=== PATIENT | female | born 1990 | race Caucasian/White ===

== ENCOUNTER 2022-12-31 21:47 | Emergency (ER) | payer MEDICAID, SELFPAY ==
[2022-12-31 21:54] VITALS: BP 129/90; PULSE 109; RESP 16; TEMP 36.6; O2SAT 98
--- NOTE | 2022-12-31 22:08 | ED.GENADUL_ITS ---
Discharge Plan Disposition Patient Disposition: Home Condition: Stable Discharge Details Clinical Impression: Leg wound, left Primary Care Provider: Unknown,Unknown ED Provider: Kurtis Ramirez Home Meds and New Rx's Prescriptions: Continued multivitamin Tablet 1 tab PO DAILY metformin 500 mg Tablet 500 mg PO BID simvastatin 5 mg Tablet 5 mg PO DAILY Discharge Instructions Additional Instructions: continue to use the topical antibiotics on the wound and clean the wound if it gets dirty with gentle soap and water follow up with your primary care provider if not improving this week if you feel more ill, have fevers or the redness starts spreading away from the wound return to the emergency department Medical Decision Making 32 yo female who states she had a mole removed by a provider this past Tuesday on her left lower medial leg that was uncomplicated comes in with some discomfort around the site. She denies any fevers, chills, drainage. She arrives stable in no distress. Her left lower leg is not swollen. She has a 1cm superficial healing wound on the mid left lower medial leg. There is 1mm faint erythema, no drainage, no crepitus, no warmth. Advised there is no evidence of cellulitis or other concerning findings and appears to be healing well and doesn't require antibiotics. Advised she can use topical antibiotics, she is stable for d/c, return precautions given and advised to f/u with pcp Differential Diagnosis Differential Diagnosis: healing wound, cellulitis HPI General Mode of arrival: ambulatory . Date/Time Provider Initiated Documentation: 12/31/22 21:55 . Limitations to Documentation: no limitations . Information obtained by: patient . History of Present Illness 32 year old F presents to the emergency department with the chief complaint of left leg wound, described as mild, Quality is described as aching, Patient started experiencing this day(s) (4) and it has been constant. No relieving factors improve symptom(s), No exacerbating factors reported . Patient notes denies fever/chills. Patient did receive the following treatments prior to arrival, NSAID Related Data Home Medications Medication Instructions Recorded Confirmed metformin 500 mg tablet 500 mg PO BID 12/31/22 12/31/22 multivitamin 1 tab PO DAILY 12/31/22 12/31/22 simvastatin 5 mg tablet 5 mg PO DAILY 12/31/22 12/31/22 Allergies Allergy/AdvReac Type Severity Reaction Status Date / Time Penicillins Allergy Unverified 12/31/22 21:58 General Stated Complaint: Cellulitis MYNOR: 4 Review of Systems All systems reviewed & are unremarkable except as noted in HPI and below Constitutional Constitutional: Denies chills, Denies fever(s) and Denies weakness Cardiovascular Cardiovascular: Denies chest pain and Denies dyspnea Respiratory Respiratory: Denies cough and Denies dyspnea Gastrointestinal Gastrointestinal: Denies abdominal pain, Denies nausea and Denies vomiting Musculoskeletal Musculoskeletal: Denies joint swelling Neurologic Neurologic: Denies weakness PFSH All Active Problems (Updated 12/31/22 @ 22:13 by Kurtis Ramirez MD) Leg wound, left (Acute) Social History Smoking/Tobacco Use Status: Never Smoking risk assessment performed?: Yes Alcohol Intake: never Substance use type: does not use Do you feel safe at home: Yes Do you feel safe in your relationship?: Yes Exam Const General: no acute distress Orientation: alert HENMT Head: normal to inspection Ears: external ears normal General nose exam: external nose normal Mouth: moist mucous membranes Eyes General: appearance normal, both eyes and all related structures Neck Neck: normal visual inspection Resp Effort & Inspection: normal respiratory effort and able to speak in complete sentences Cardio Rate: regular rate Skin General skin exam: elasticity normal Neuro General: patient alert and patient oriented x3 Extrem General: full ROM and no edema Psych Mental Status: mental status grossly normal Course Vital Signs Vital signs: Vital Signs Temperature 36.6 C 12/31/22 21:54 Pulse 109 H 12/31/22 21:54 Respiratory Rate 16 12/31/22 21:54 Blood Pressure 129/90 12/31/22 21:54 Pulse Oximetry 98 12/31/22 21:54 Temperature 36.6 C 12/31/22 21:54 Temperature Source Temporal Artery Scan 12/31/22 21:54 Pulse 109 H 12/31/22 21:54 Respiratory Rate 16 12/31/22 21:54 Respiratory Effort Normal 12/31/22 21:54 Blood Pressure 129/90 12/31/22 21:54 Blood Pressure Position Sitting 12/31/22 21:54 Pulse Oximetry 98 12/31/22 21:54 Oxygen Delivery Method Room Air 12/31/22 21:54 Oxygen Flow Rate 0 12/31/22 21:54 Pain Level 8 12/31/22 21:54
[2022-12-31] MEDS: Lidocaine 5% Patch 1 PATCH TP (22:15)
== END 2022-12-31 22:21 | disposition home or self-care (01) ==
PROVIDERS: Emergency Provider Emergency Medicine
DX: M79.662 Pain in left lower leg (principal); G89.18 Other acute postprocedural pain
CPT/HCPCS: 99283; 99284

== ENCOUNTER 2023-07-21 13:52 | Outpatient (REF) | payer MEDICAID, SELFPAY | END 2023-07-21 13:53 | disposition home or self-care (01) | LOC: LBN 13:52 | PROVIDERS: Visit Provider Obstetrics & Gynecology | DX: N76.0 Acute vaginitis; N94.89 Other specified conditions associated with female genital organs and menstrual cycle | CPT/HCPCS: 87480; 87510; 87660 ==

== ENCOUNTER 2023-11-04 10:05 | Outpatient (REF) | payer MEDICAID, SELFPAY | END 2023-11-04 10:06 | disposition home or self-care (01) | LOC: LBN 10:05 | PROVIDERS: PCP Family Medicine; Visit Provider Obstetrics & Gynecology | DX: N89.8 Other specified noninflammatory disorders of vagina (principal) | CPT/HCPCS: 87480; 87510; 87660 ==

== ENCOUNTER 2023-11-07 14:04 | Outpatient (REF) | payer MEDICAID, SELFPAY ==
[2023-11-07 14:59] LABS: ALT 29 U/L (14-59); AST 14 U/L (15-37); Albumin 3.9 g/dL (3.4-5.0); Alkaline Phosphatase 74 U/L (46-116); Anion Gap 8.7 mmol/L (3-11); BUN 13 mg/dL (7-18); Bilirubin, Total 0.3 mg/dL (0.2-1.0); CO2 29.3 mmol/L (21.0-32.0); CREATININE 0.8 mg/dL (0.55-1.02); Calcium 9.8 mg/dL (8.5-10.1); Calculated LDL 239 mg/dL (<100); Chloride 103 mmol/L (98-107); Cholesterol 329 mg/dL (<200); Estimated GFR 100.33 (mL/min/1.73m2); Glucose 103 mg/dL (74-106); HDL Cholesterol 50 mg/dL (40-60); Potassium 4.7 mmol/L (3.5-5.1); Sodium 141 mmol/L (136-145); Total Protein 7.4 g/dL (6.4-8.2); Triglyceride 200 mg/dL (<150)
== END 2023-11-07 14:05 | disposition home or self-care (01) ==
LOC: NCHCN 14:04
PROVIDERS: PCP Family Medicine; Visit Provider Family Medicine
DX: Z00.00 Encounter for general adult medical examination without abnormal findings (principal)
CPT/HCPCS: 80053; 80061

== ENCOUNTER 2024-02-16 18:05 | Outpatient (REF) | payer MEDICAID, SELFPAY ==
[2024-02-16 21:25] LABS: Calculated LDL 77 mg/dL (<100); Cholesterol 167 mg/dL (<200); HDL Cholesterol 40 mg/dL (40-60); TSH (W/Ref FT4) 1.25 uIU/mL (0.36-3.74); Triglyceride 250 mg/dL (<150)
== END 2024-02-16 18:06 | disposition home or self-care (01) ==
LOC: NCHCN 18:05
PROVIDERS: PCP Family Medicine; Referring Provider Family Medicine; Visit Provider Family Medicine
DX: E78.5 Hyperlipidemia, unspecified (principal)
CPT/HCPCS: 80061; 84443

== ENCOUNTER 2024-02-26 14:49 | Emergency (ER) | payer OTHER, MEDICAID, SELFPAY ==
[2024-02-26 14:57] VITALS: BP 170/75; PULSE 94; RESP 16; TEMP 36.6; O2SAT 99
--- NOTE | 2024-02-26 15:00 | DI.CT_ITS ---
Exam(s) CT CHEST PE ABD PELVIS W EXAM: CT CHEST PE ABD PELVIS W CLINICAL HISTORY: pleuritic right lower back pain radiating to RUQ. TECHNIQUE: Imaging Protocol: Axial CT angiography was performed with multi-slice acquisition and m ulti-planar and/or 3D reconstructions. CONTRAST MATERIAL: Intravenous: Omnipaque 350 Contrast volume:100 ml Oral: None COMPARISON: No exams were available for comparison FINDINGS: CHEST: PULMONARY ARTERIES: There are no obvious intra-arterial filling defects to suggest the presence of ac [place] pulmonary emboli. LUNGS: There is no evidence of pulmonary infarction.No infiltrates. No ominous pulmonary nodules. T here are no pleural effusions. MEDIASTINUM: There is no hilar nor mediastinal adenopathy. Visualized thyroid unremarkable. CARDIAC: Heart size is normal. There is no pericardial effusion. There is no significant shift of t he interventricular septum.Caliber of the thoracic aorta is within normal limits. No evidence of aor tic dissection OSSEOUS: No significant osseous lesions.. ABDOMEN: There is no ascites. LIVER: There are no focal hepatic lesions nor dilatation of intrahepatic ducts. GALLBLADDER/BILIARY: Gallbladder is somewhat contracted. No radiopaque gallstones noted in the lumen . No pericholecystic fluid. CBD is not dilated. PANCREAS: No evidence of pancreatic mass nor dilatation of the pancreatic duct. SPLEEN: Spleen is not enlarged. There are no intrasplenic lesions. Splenic and portal veins are kramer nt. ADRENALS: There are no significant adrenal masses. KIDNEYS:No cysts evident. No calculi nor hydronephrosis. No solid renal masses. ABDOMINAL AORTA: Abdominal aorta is not enlarged. LYMPH NODES: There is no retroperitoneal or para-aortic adenopathy. ABDOMINAL WALL/GI: No evidence of significant anterior abdominal wall hernia. No bowel obstruction. PELVIS: LYMPH NODES: There is no intrapelvic nor inguinal adenopathy. GI: No evidence of appendicitis.No evidence of sigmoid diverticulitis. URINARY BLADDER: No calculi nor masses evident REPRODUCTIVE: Uterus and adnexal regions appear unremarkable. No free fluid. OSSEOUS: No significant osseous lesions. IMPRESSION: 1. No evidence of acute pulmonary emboli nor pulmonary infarction. No other intrathoracic findings. 2. Also no acute findings in the abdomen and pelvis. RADIATION DOSE DELIVERED: Total DLP DATA REPOSITORY: All CT scans at this facility are submitted to the National Radiology Data Registry (NRDR) Dose Index Registry (DIR) with the [employer] (ACR). RADIATION OPTIMIZATION: All CT scans at this facility use at least one of these dose optimization te chniques: automated exposure control; mA and/or kV adjustment per patient size (includes targeted exa ms where dose is matched to clinical indication); or iterative reconstruction.
--- NOTE | 2024-02-26 15:14 | ED.GENADUL_ITS ---
Discharge Plan Disposition Patient Disposition: Home Condition: Improving Discharge Details Clinical Impression: Musculoskeletal chest pain Primary Care Provider: Amber Thomas ED Provider: Alvaro Jimenez Home Meds and New Rx's Prescriptions: New lidocaine [Lidoderm] 5 % adhesive patch,medicated 1 patch topical DAILY Qty: 15 0RF Rx Instructions: leave on most painful area for up to 12 hrs cyclobenzaprine 5 mg tablet 5 mg PO QHS PRN (Reason: muscle spasm) Qty: 7 0RF No Action multivitamin Tablet 1 tab PO DAILY rosuvastatin 20 mg tablet 20 mg PO DAILY Patient Comments: TAKE 1 TABLET BY MOUTH EVERY DAY Discharge Instructions Instructions: Chest Pain (ED) HPI General Date/Time Provider Initiated Documentation: 02/26/24 14:55 . HPI Narrative: 33-year-old female presents with right thoracic pleuritic discomfort rating to right upper quadrant worse with movement worse with breathing sharp in nature intermittent, denies chest pain or shortness of breath. Denies exogenous estrogen use recent travel recent immobilization or history of thromboembolic disease in herself or the family; denies history of abdominal surgery in the past; denies nausea or vomiting. Related Data Home Medications Medication Instructions Recorded Confirmed multivitamin 1 tab PO DAILY 12/31/22 02/26/24 cyclobenzaprine 5 mg tablet 5 mg PO QHS PRN muscle spasm #7 02/26/24 tabs lidocaine 5 % topical patch 1 patch topical DAILY #15 ea 02/26/24 (Lidoderm) rosuvastatin 20 mg tablet 20 mg PO DAILY 02/26/24 02/26/24 Previous Rx's Medication Instructions Recorded cyclobenzaprine 5 mg tablet 5 mg PO QHS PRN muscle spasm #7 02/26/24 tabs lidocaine 5 % topical patch 1 patch topical DAILY #15 ea 02/26/24 (Lidoderm) Allergies Allergy/AdvReac Type Severity Reaction Status Date / Time Penicillins Allergy Mild Nausea Unverified 02/26/24 14:55 General Stated Complaint: Abd Prob MYNOR: 3 Review of Systems Narrative: Review of Systems Constitutional: negative Eyes: negative ENT: negative Cardiovascular: negative Respiratory: negative Gastrointestinal: Abdominal pain : negative Musculoskeletal: Back pain Skin: negative Neurologic: negative Psych: negative Exam Narrative Exam Narrative: Physical Examination General: alert, awake, cooperative, resting comfortably, no acute distress HEENT: normocephalic, atraumatic; PERRL, EOM intact, conjunctiva normal; no nasal discharge; moist mucous membranes, oral and pharyngeal mucosa normal, tolerating secretions Neck: supple, trachea midline; full ROM Chest: normal to inspection Respiratory: normal respiratory effort, speaking in full sentences, clear to auscultation, no wheezing, rales or rhonchi Cardiac: regular rate, regular rhythm, S1S2 intact, no murmurs rubs or gallops GI: abdomen soft, non-tender, non-distended; no palpable mass or hepatosplenomegaly Skin: no lesions, rashes or trauma appreciated Neuro: AAOx3, normal speech, moving all extremities Psych: Appropriate mood and affect Course Vital Signs Vital signs: Vital Signs Temperature 36.6 C 02/26/24 14:57 Pulse 94 H 02/26/24 14:57 Respiratory Rate 16 02/26/24 14:57 Blood Pressure 170/75 H 02/26/24 14:57 Pulse Oximetry 99 02/26/24 14:57 Temperature 36.6 C 02/26/24 14:57 Temperature Source Temporal Artery Scan 02/26/24 14:57 Pulse 94 H 02/26/24 14:57 Respiratory Rate 16 02/26/24 14:57 Respiratory Effort Normal, Non-Labored 02/26/24 14:59 Blood Pressure 170/75 H 02/26/24 14:57 Blood Pressure Position Sitting 02/26/24 14:57 Pulse Oximetry 99 02/26/24 14:57 Oxygen Delivery Method Room Air 02/26/24 14:57 Oxygen Flow Rate 0 02/26/24 14:57 Pain Level 6 02/26/24 14:57 Medical Decision Making 33-year-old female presents with pleuritic right thoracic pain posterior nature rating to right upper quadrant, worse with movement and deep breathing, no shortness of breath no chest pain, no exogenous estrogen use or thromboembolic risk factors, abdomen soft nontender nondistended slight discomfort right upper quadrant without guarding or rebounding, consider biliary colic versus PE versus pneumonia versus pleural effusion low suspicion for pneumothorax was also consider musculoskeletal strain low suspicion for ACS or aortic pathology, lower suspicion for nephrolithiasis or pyelonephritis. Screening labs imaging fluids analgesia close reassessment 17: 33 patient resting comfortably no acute distress. CT chest CT abdomen pelvis unremarkable. Feeling better after analgesia anti-inflammatory. Likely musculoskeletal back and chest wall discomfort. Quality:SDOH Health Related Social Needs: No Data to Display PFSH All Active Problems (Updated 02/26/24 @ 17:32 by Alvaro Jimenez MD) Musculoskeletal chest pain (Acute) Medical History (Updated 02/26/24 @ 17:32 by Alvaro Jimenez MD) Ear fullness History of blood transfusion Otitis media, unspecified, bilateral Nasal polyps Candidiasis of skin Eustachian tube dysfunction Leg wound, left Social History Smoking/Tobacco Use Status: Never Smoking risk assessment performed?: Yes Alcohol Intake: never Drug use: Never Substance use type: does not use Housing: apartment Do you feel safe at home: Yes Do you feel safe in your relationship?: Yes Female Reproductive History Menstrual Age of Menarche: 13 History History 1 Para 1 Hx # Term Pregnancies Multiple births Hx # Pregnancies Ectopic pregnancies AB induced Hx Number of Living Children AB spontaneous Past Pregnancies Del. Date GA/Weeks # Preg Succ Route Wgt Sex Labor Lgth Anesth esia Location Prov Complic 06/24/21 38 Yes vaginal Male Delivery Date: 06/24/21 Last Updated by: Corazon Trivedi
[2024-02-26 15:29] LABS: Abs Immature Grans 0.01 10^3/uL (0.0-0.06); Absolute Basophil Count 0.05 10^3/uL (0.0-0.2); Absolute Eosinophil Count 0.36 10^3/uL (0.0-0.7); Absolute Lymphocyte Count 3.36 10^3/uL (1.2-3.4); Absolute Monocyte Count 0.46 10^3/uL (0.1-0.8); Absolute Neutrophil Count 5.21 10^3/uL (1.2-6.7); Basophils % 0.5; Eosinophils % 3.8; HCT 40.8 % (36.0-46.0); HGB 13.4 g/dL (11.2-15.7); Immature Grans % 0.1; Lymphocytes % 35.6; MCH 27.4 pg (27.0-33.0); MCHC 32.8 % (32.0-36.0); MCV 83 fL (80-95); MPV 9.7 fL (8.0-11.0); Monocytes % 4.9; Neutrophils % 55.1; Platelet Count 284 10^3/uL (130-400); RBC 4.89 10^6/uL (3.93-5.22); RDW 12.5 % (11.7-14.6); RDW-SD 37.9 fL; WBC 9.45 10^3/uL (4.4-10.8)
[2024-02-26 15:31] LABS: Bilirubin Negative (Negative); Blood Negative (Negative); Clarity Sl Cloudy (Clear); Glucose Negative (Negative); Ketones Trace mg/dL (Negative); Leukocyte Esterase Negative (Negative); Nitrite Negative (Negative); Specific Gravity >= 1.030 (1.005-1.025); Urobilinogen 0.2 mg/dL (Up to 0.2); pH 5.5 (5-8)
[2024-02-26] MEDS: Ketorolac 15 MG/ML VIAL IVP (15:34)
[2024-02-26] MEDS: Normal Saline 1,000 ML 1000 ML IV (15:34)
[2024-02-26] MEDS: Lidocaine 5% Patch 1 PATCH TP (15:34)
[2024-02-26] MEDS: Ondansetron 4 MG/2 ML VIAL IVP (15:35)
[2024-02-26 15:43] LABS: Prothrombin Time 10.2 sec (9.1-11.1)
[2024-02-26 15:51] LABS: ALT 39 U/L (14-59); AST 17 U/L (15-37); Albumin 3.6 g/dL (3.4-5.0); Alkaline Phosphatase 75 U/L (46-116); Anion Gap 7.6 mmol/L (3-11); BUN 14 mg/dL (7-18); Bilirubin, Total 0.3 mg/dL (0.2-1.0); CO2 28.4 mmol/L (21.0-32.0); CREATININE 0.7 mg/dL (0.55-1.02); Calcium 8.7 mg/dL (8.5-10.1); Chloride 103 mmol/L (98-107); Estimated GFR 117.77 (mL/min/1.73m2); Glucose 139 mg/dL (74-106); Lipase 60 U/L (16-77); NT-proBNP 44 pg/mL (<300); Potassium 3.7 mmol/L (3.5-5.1); Sodium 139 mmol/L (136-145); Total Protein 7.4 g/dL (6.4-8.2)
[2024-02-26 15:57] LABS: Troponin I < 50 ng/L (< or =60)
[2024-02-26] MEDS: Omnipaque 350 MG/ML 100 ML BTL IJ (16:20)
[2024-02-26] MEDS: Normal Saline - Diluent 50 ML VIAL IJ (16:21)
--- NOTE | 2024-02-26 17:16 | DI.VRAD_ITS ---
PROCEDURE INFORMATION: Exam: CTA Chest With Contrast Exam date and time: 02/26/2024 3:57 PM Age: 33 years old Clinical indication: Abdominal pain; Localized; Right upper quadrant (ruq); Pleuordynia; Patient HX: Pleuritic right lower back pain radiating to ruq TECHNIQUE: Imaging protocol: Computed tomographic angiography of the chest with contrast. Exam focused on the arteries. 3D rendering (Not supervised by radiologist): MIP and/or 3D reconstructed images were created by the technologist. COMPARISON: No relevant prior studies available. FINDINGS: Pulmonary arteries: Normal. No pulmonary emboli. Aorta: Unremarkable. No aortic aneurysm. No aortic dissection. Lungs: The lungs are slightly hypoinflated. Pleural spaces: Unremarkable. No pneumothorax. No pleural effusion. Heart: Unremarkable. No cardiomegaly. No pericardial effusion. Lymph nodes: Unremarkable. No enlarged lymph nodes. Bones/joints: Unremarkable. No acute fracture. Soft tissues: Unremarkable. IMPRESSION: No evidence for pulmonary embolus. PROCEDURE INFORMATION: Exam: CT Abdomen And Pelvis With Contrast Exam date and time: 02/26/2024 3:57 PM Age: 33 years old Clinical indication: Abdominal pain; Localized; Right upper quadrant (ruq); Pleuordynia; Patient HX: Pleuritic right lower back pain radiating to ruq TECHNIQUE: Imaging protocol: Computed tomography of the abdomen and pelvis with contrast. COMPARISON: No relevant prior studies available. FINDINGS: Liver: Normal. No mass. Gallbladder and bile ducts: Gallbladder contracted. Pancreas: Normal. No ductal dilation. Spleen: Normal. No splenomegaly. Adrenal glands: Normal. No mass. Kidneys and ureters: Normal. No hydronephrosis. Stomach and bowel: Unremarkable. No obstruction. No mucosal thickening. Appendix: No evidence of appendicitis. Intraperitoneal space: Unremarkable. No free air. No significant fluid collection. Vasculature: Unremarkable. No abdominal aortic aneurysm. Lymph nodes: Unremarkable. No enlarged lymph nodes. Urinary bladder: Bladder not well distended. Reproductive: Unremarkable as visualized. Bones/joints: Unremarkable. No acute fracture. Soft tissues: Unremarkable. IMPRESSION: No acute abnormality seen to account for symptoms. Dictated and Authenticated by: Domitila Goodman MD. Ordering:ULISES John MD
[2024-02-26 17:46] VITALS: BP 105/76; PULSE 78; RESP 16; O2SAT 98
== END 2024-02-26 18:15 | disposition home or self-care (01) ==
PROVIDERS: Emergency Provider Emergency Medicine; PCP Family Medicine
DX: R07.89 Other chest pain (principal); R10.11 Right upper quadrant pain
CPT/HCPCS: 71275; 74177; 80053; 81025; 83690; 96361; 96374; 96375; 99285; 81003; 83880; 84484; 85025; 85610; 85730; 99284; J1885; J2405; J3490

== ENCOUNTER 2025-03-06 19:06 | Outpatient (REF) | payer MEDICAID, SELFPAY | END 2025-03-06 19:07 | disposition home or self-care (01) | LOC: NCHCN 19:06 | PROVIDERS: PCP Family Medicine; Visit Provider Family Medicine | DX: R35.0 Frequency of micturition (principal); A49.8 Other bacterial infections of unspecified site | CPT/HCPCS: 87086 ==

== ENCOUNTER 2025-03-29 07:12 | Day surgery (SDC) | payer MEDICAID, SELFPAY ==
[2025-03-29 06:56] VITALS: BMI 38.9
--- NOTE | 2025-03-29 06:56 | ANES.PREOP_ITS ---
General Info Date of Service Date Performed: 03/29/25 Height: 5 ft 3 in Weight: 99.79 kg Body Mass Index (BMI): 38.9 Surgical Procedure: Operation Date: 03/29/25 08:35 Proposed Procedure Side Surgeon p Hussain SO MD Meds Allergies and Home Medications Allergies Allergy/AdvReac Type Severity Reaction Status Date / Time Penicillins Allergy Intermediate Hives Verified 03/29/25 07:39 Home Medication ?Medication ?Instructions ?Recorded multivitamin 1 tab PO DAILY 12/31/22 rosuvastatin 20 mg tablet 20 mg PO DAILY 02/26/24 fluoxetine 40 mg capsule 40 mg PO DAILY 03/05/25 polyethylene glycol 3350 17 17 g PO BID 03/05/25 gram/dose oral powder psyllium husk 0.4 gram capsule 0.8 g PO DAILY 03/05/25 (Metamucil) tirzepatide 12.5 mg/0.5 mL 12.5 mg subcut QWEEK 03/05/25 subcutaneous pen injector (Mounjaro) bisacodyl 5 mg tablet,delayed 5 mg PO ONCE colonscopy bowel prep 03/12/25 release (Dulcolax (bisacodyl)) #4 tabs polyethylene glycol 3350 17 238 g PO ONCE colonoscopy prep 03/12/25 gram/dose oral powder #238 grams Current Visit Medications: Current Medications Generic Name Dose Route Start Last Admin Trade Name Freq PRN Reason Stop Dose Admin Ringer's Solution 1,000 mls @ 80 mls/hr 03/29/25 06:00 IV 03/29/25 23:59 INFUSION GT IV Miscellaneous Supplies 1 each 03/29/25 06:00 Iv Access IV 03/29/25 23:59 DIRECTED GT Sodium Chloride 0 ml 03/29/25 06:00 Normal Saline Flush 10 Ml Syr IV 03/29/25 23:59 PRN PRN Sodium Chloride 0 ml 03/29/25 06:00 Normal Saline 10 Ml Vial IJ 03/29/25 23:59 DIRECTED PRN Sterile Water 0 ml 03/29/25 06:00 Water,Injection,Sterile 10 Ml Vial IJ 03/29/25 23:59 DIRECTED PRN PFSH Active Problems Active Problems: Problem Status Onset Code Irregular bowel habits Acute R19.8 ADHD (attention deficit hyperactivity disorder) Acute F90.9 OCD (obsessive compulsive disorder) Acute F42.9 Bowel dysfunction Acute K59.9 Obesity Chronic E66.9 Type 2 diabetes mellitus Acute E11.9 Hemorrhoids Acute K64.9 Medical History Medical History Polyp of nasal cavity Hyperlipidemia Steatosis of liver Chilblain IBS (irritable bowel syndrome) Constipation Anxiety disorder Major depression Ear fullness History of blood transfusion Otitis media, unspecified, bilateral Nasal polyps Candidiasis of skin Eustachian tube dysfunction Leg wound, left Surgical History Surgical History H/O wisdom tooth extraction History of tonsillectomy History of endoscopy Tobacco Smoking/Tobacco Use Status: Never Alcohol Alcohol Intake: never Substance Use Substance use: Never Substance use type: does not use Prental History History 1 Para 1 Hx # Term Pregnancies Multiple births Hx # Pregnancies Ectopic pregnancies AB induced Hx Number of Living Children AB spontaneous Past Pregnancies Del. Date GA/Weeks # Preg Succ Route Wgt Sex Labor Lgth Anesth esia Location Prov Complic 06/24/21 38 Yes vaginal Male Delivery Date: 06/24/21 Last Updated by: Corazon Trivedi Vital Signs and Lab Results Vital Signs Most Recent Vital Signs in EMR: Temp Pulse Resp BP Pulse Ox 36.6 C 78 17 106/71 97 03/29/25 07:33 03/29/25 07:33 03/29/25 07:33 03/29/25 07:33 03/29/25 07:33 Lab Results Blood Type / Crossmatch: No Data to Display Complete Blood Count: No Data to Display Complete Metabolic Panel: No Data to Display Liver Function Panel: No Data to Display Coagulation Panel: No Data to Display Cardiac Panel: No Data to Display Arterial Blood Gas: No Data to Display Venous Blood Gas: No Data to Display Pancreas Panel: No Data to Display Thyroid Panel: No Data to Display Infectious Disease: No Data to Display Blood Cultures: No Data to Display Toxicology Panel: No Data to Display Panel: No Data to Display Anesthesia Assessment and Plan Anesthesia History Personal History: No History of Anesthesia Complications Family History: No Family History of Anesthesia Complications Exercise Tolerance Exercise Tolerance: Metabolic Equivalents>4 Pertinent Negatives Pertinent Negatives: No Symptoms of GERD, No Major Cardiovascular Symptoms or Complaints, No Major Pulmonary Symptoms or Complaints and No History of CVA/TIA Cardiac & Pulmonary Exam Cardiac Exam: Normal S1/S2 Heart Sounds Pulmonary Exam: Clear Bilateral Breath Sounds Implantable Cardiac Device Does patient have a Pacemaker or an ICD?: No Airway Exam Known Difficult Airway: No Mallampati Class: 2 Mouth Opening: Normal (> 3cm) Thyromental Distance: Greater than 3 cm Neck Range of Motion: Full ROM Neck Circumference: Normal Teeth Condition: Normal Dentition ASA Classification ASA Score: ASA 2 Emergency Case?: No NPO Status NPO Status: NPO Clears >2 hours, Solids >8 hours Status Status: Pt. refuses testing, she was counseled on anesthesia risks Anesthesia Plan Resuscitation Status: Full Code Anesthesia Technique: General Anesthesia Airway Planned: Natural Airway Monitors Used: Standard Monitors
[2025-03-29 07:33] VITALS: BP 106/71; PULSE 78; RESP 17; TEMP 36.6; O2SAT 97
[2025-03-29] MEDS: Lactated Ringers 1,000 ML 80 ML IV (07:44)
[2025-03-29 09:02] VITALS: BP 111/74; PULSE 79; RESP 16; TEMP 36.4; O2SAT 100
--- NOTE | 2025-03-29 09:05 | W.ANESPOSTOP ---
Postoperative Evaluation Date, Time and Location Date Performed: 03/29/25 Time Performed: 09:05 Patient Location: Day Surgery Unit Vital Signs Most Recent Imported Vital Signs: Most Recent Vital Signs Temp Pulse Resp BP Pulse Ox 36.6 C 78 17 106/71 97 03/29/25 07:33 03/29/25 07:33 03/29/25 07:33 03/29/25 07:33 03/29/25 07:33 Pain Score Most Recent Pain Score: Most Recent Pain Score Pain Level 0 03/29/25 07:33 Assessment Mental Status: Awake (Alert & Oriented to Patient Baseline) Airway and Respiratory Function: Patent airway with normal (patient baseline) respiratory exam Cardiovascular Function: Hemodynamically Stable Hydration Status: Adequately Hydrated Nausea & Vomiting: No Nausea or Vomiting Pain: Pt. Denies Any Pain Peripheral Nerve Block: Patient did not receive a nerve block
--- NOTE | 2025-03-29 09:07 | W.PM.OP ---
Operative Note Operative Note PRE-OP DIAGNOSIS: Rectal bleeding POST-OP DIAGNOSIS: other (Colon polyp, external hemorrhoid) PROCEDURE: Colonoscopy SURGEON: Rogelio SO ANESTHESIA TYPE: MAC Refer to Anesthesia Record PATHOLOGY: other (Sigmoid colon polyp) COMPLICATIONS: None Patient was transported to: PACU Patient's condition: stable Findings: 1 subcentimeter colon polyp, small external hemorrhoid Procedure Description: After obtaining informed consent, patient was brought back to the endoscopy suite. She was turned on the left side and connected to the monitors. Timeout was performed. I began by performing a digital rectal exam. This revealed a small noninflamed external hemorrhoid in the anterior midline. I inserted the colonoscope and advanced the length of the colon. I attained the cecum as identified by the appendiceal orifice and the ileocecal valve. I intubated the ileocecal valve. The terminal ileum had a normal appearance. I withdrew into the cecum. Prep was good. Cecum had a normal appearance. I withdrew along the ascending colon, transverse colon, descending colon, and sigmoid colon. In the sigmoid colon she had a small inflammatory appearing polyp that I removed with a cold snare. This was retrieved with suction and sent to pathology. I withdrew into the rectum. I did retroflex. This was all unremarkable. I decompressed the sigmoid and the rectum and withdrew the scope entirely. Patient tolerated well. She went to recovery in stable condition. Disposition: Patient will be discharged home later today. We will call her with the pathology report. She can call the office if she is interested to pursue excision of her small external hemorrhoid. Date of Procedure: 03/29/25
[2025-03-29 09:31] VITALS: BP 89/66; PULSE 68; RESP 16; TEMP 36.3; O2SAT 99
--- NOTE | 2025-05-02 14:47 | PDOC.ANES ---
Date of service: 05/02/25 Time of Service: 14:47 Anesthesia Note Report Anesthesia Note: Called and discussed timing of Mounjaro with patient. Discussed physiology and risk. Discussed growing body of literature and why some recommendations seem to be shifting. Discussed that due to risk still being present she will remain cancelled for tomorrow and we will work on getting her back on the schedule. I gave time for questions and answers and patient expressed understanding.
== END 2025-03-29 09:46 | disposition home or self-care (01) ==
PROVIDERS: PCP Family Medicine; Visit Provider Surgery
PROC: 0DJD8ZZ Inspection of Lower Intestinal Tract, Via Natural or Artificial Opening Endoscopic (ICD-10-PCS; CPT 45378; principal; 2025-03-29 08:30)
DX: K62.5 Hemorrhage of anus and rectum (principal); K63.5 Polyp of colon; K64.4 Residual hemorrhoidal skin tags
CPT/HCPCS: 45385; 88305; J2371; J2704

== ENCOUNTER 2025-05-01 08:42 | Outpatient (CLI) | payer MEDICAID, SELFPAY ==
[2025-05-01 09:00] LABS: HCT 39.7 % (36.0-46.0); HGB 12.9 g/dL (11.2-15.7); MCH 27.3 pg (27.0-33.0); MCHC 32.5 % (32.0-36.0); MCV 84 fL (80-95); MPV 9.8 fL (8.0-11.0); Platelet Count 242 10^3/uL (130-400); RBC 4.73 10^6/uL (3.93-5.22); RDW 13.2 % (11.7-14.6); RDW-SD 40.5 fL
[2025-05-01 09:46] LABS: TSH (W/Ref FT4) 2.09 uIU/mL (0.36-3.74)
== END 2025-05-01 08:43 | disposition home or self-care (01) ==
LOC: LBO 08:42
PROVIDERS: PCP Family Medicine; Visit Provider Nurse Practitioner Women's Health
DX: F32.9 Major depressive disorder, single episode, unspecified (principal); F41.9 Anxiety disorder, unspecified
CPT/HCPCS: 36415; 85027; 84443

== ENCOUNTER 2025-05-14 10:57 | Day surgery (SDC) | payer MEDICAID, SELFPAY ==
--- NOTE | 2025-05-13 20:15 | PDOC.DSDIS_ITS ---
Date of service: 05/14/25 Discharge Plan Disposition Patient Disposition: Home Condition: Good Discharge Details Reason For Visit: Hemorrhoidectomy Attending Provider: Wayne Johnson Primary Care Provider: Amber Thomas Home Meds and New Rx's Prescriptions: New tramadol 25 mg tablet 25 mg PO Q8H PRNQty: 15 0RF Continued bupropion HCl [Wellbutrin SR] 200 mg tablet sustained-release 12 hr 200 mg PO DAILY norgestimate-ethinyl estradiol [Sprintec (28)] 0.25-0.035 mg tablet 1 tab PO DAILY Qty: 84 4RF Rx Instructions: Use active pills continuously with no breaks. Discard inactive pills psyllium husk [Metamucil] 0.4 gram capsule 0.8 g PO DAILY fluoxetine 40 mg capsule 60 mg PO DAILY Mounjaro 12.5 mg/0.5 mL pen injector 12.5 mg subcut QWEEK multivitamin Tablet 1 tab PO DAILY rosuvastatin 20 mg tablet 20 mg PO DAILY Patient Comments: TAKE 1 TABLET BY MOUTH EVERY DAY Discharge Instructions Instructions: Anal Fissure (DC) Additional Instructions: jaja Vizcaino today, and I hope you feel well, and make an uneventful recovery from the procedure. As it turns out, this is not actually hemorrhoid, rather an anal fissure. Anal fissures occur when there are small tears in the skin that fail to heal completely. This causes scar tissue to build up, causing the prominent bit of skin that you have been noticing. The pain and or bleeding that you are experiencing is from the fissure itself. These can be a little tricky to heal as the underlying problem is really increased anal sphincter tone, which causes limited blood flow to the tissue, preventing it from healing completely. There are a number of treatments for this, but hopefully excision and closure will solve the problem. Largely, the recovery is the same as hemorrhoidectomy, which we discussed beforehand. I did use a long-acting anesthetic, that will hopefully provide some relief in the days to come, but these incisions can be quite uncomfortable. I suggest that you alternate [id number] Tylenol and ibuprofen every 6 hours for the first 2 days. I put a prescription in for a medication called tramadol if you need that for more intense pain. Most patients also find sitz bath's very comfo rting. To perform a sitz bath, you can use your bathtub, or the toilet insert. What ever you choose, fill it with enough water so that you can sit in it, and your anus will be submerged. I typically recommend mixing a tablespoon of baking soda or Epsom salts with each cup of water. Most patients find more warm water to be most comfortable. You should try to do this once in the morning, once in the evening, and if possible during the course of the day after bowel movements. There is really no upper limit to how frequently you can do this so long as it is helping things feel better. As we discussed beforehand, I would also recommend that you some MiraLAX. 1 capful mixed with about 8 ounces of liquid once in the morning, and once in the evening is typically sufficient. The evening dose can be moved up into the afternoon if you find that it has waking you from sleep to use the bathroom. Stool should be soft, and relatively easy to pass. After 1 week, I would transition over to a bulking agent such as Metamucil, or other psyllium containing product. This oftentimes needs to be titrated up over the course of several days, as some patients find it a little bit bloating. The goal of this is to develop a soft, bulky stools that make it easier for the rectum to manage and pass. This should help reduce resting sphincter tone, and hopefully provide an environment that is more suitable for fissure healing. We have made a follow-up appointment in the office for you. You will be seeing one of my partners as I will be traveling during that time. If everything is healing nicely, and you are feeling well, hopefully nothing else will need to be done. If you are still having discomfort, or the wound looks at all concerning, then we will transition over to a topical ointment such as diltiazem cream, or nitroglycerin cream to see if that gets the tissue to soften up. If you need anything at all, please feel free to call the office at any time. The number is [phone] months 84. Stand Alone Forms: Anesthesia Discharge InstBerta, Roel Nye (DSU) Referrals: Wayne Johnson MD [ [facility] STAFF PHYSICIAN, Surgery] - 05/29/25 9:00 am Activity:: Activity as Tolerated Remove Dressings/Wound Care:: 24 hours Shower/Bathe:: 24 hours Diet:: As Tolerated Discharge Orders Discharge Orders: Discharge Order (Routine); Ordered 05/13/25 Ordered By: Wayne Johnson DS: Diagnosis Discharge Diagnosis (1) Hemorrhoids: Status: Acute Asessment and Plan: Excision and closure of anterior anal fissure
--- NOTE | 2025-05-13 20:16 | W.PM.OP ---
Operative Note Operative Note PRE-OP DIAGNOSIS: External hemorrhoid POST-OP DIAGNOSIS: other (Anterior anal fissure) PROCEDURE: Excision and primary closure of anal fissure SURGEON: Wayne Johnson ANESTHESIA TYPE: Local By Surgeon and General LMA/ETT Refer to Anesthesia Record ESTIMATED BLOOD LOSS: 10 PATHOLOGY: none sent COMPLICATIONS: None Patient was transported to: PACU Indications: Charis is a 34-year-old woman with anal discomfort, and prolapsing occasionally bleeding tissue. Findings: Anterior anal fissure with associated sentinel pile Procedure Description: Charis was brought back to the operating room, and general endotracheal anesthesia was initiated. She was then rolled from her stretcher into the prone position. Great care was taken to ensure that she was padded and supported appropriately. The anus and perineum were then prepped and draped. External exam revealed that this was not actually a hemorrhoid, rather a sentinel pile associated with a small anal fissure in the anterior midline. Digital rectal exam was normal. Next, I anesthetized the field with local anesthetic including Exparel. Small anal speculum was used for exposure. The fissure is approximately 0.75 cm long by 0.25 cm at its widest point. Next, a 3-0 Vicryl stitch was placed at the apex of the fissure, which was just beyond the anal verge. The fissure was then excised incorporating a small amount of healthy mucosa on each edge. The granulated base of the fissure was completely excised, taking great care to spare the underlying sphincters. The excision was carried out externally, including the sentinel pile associated with this fissure. The wound was irrigated. It was clean and hemostatic. The mucosa was then reapproximated with interrupted 3-0 Vicryl stitches extending out along the endoderm. The wound was hemostatic. Charis was then rolled back to the supine position on a stretcher, and activated and transferred to the recovery unit. Date of Procedure: 05/14/25
[2025-05-14 11:29] VITALS: BP 114/71; PULSE 74; RESP 18; TEMP 36.2; O2SAT 100
[2025-05-14] MEDS: Lactated Ringers 1,000 ML 80 ML IV (11:49)
--- NOTE | 2025-05-14 12:36 | W.ANESPRE ---
General Info Date of Service Date Performed: 05/14/25 Height: 5 ft 3 in Weight: 89.2 kg Body Mass Index (BMI): 34.8 Surgical Procedure: Operation Date: 05/14/25 12:25 Proposed Procedure Side Surgeon p Hemorrhoidectomy Wayne Johnson MD Meds Allergies and Home Medications Allergies Allergy/AdvReac Type Severity Reaction Status Date / Time Penicillins Allergy Intermediate Hives Verified 05/14/25 11:34 Home Medication ?Medication ?Instructions ?Recorded multivitamin 1 tab PO DAILY 12/31/22 rosuvastatin 20 mg tablet 20 mg PO DAILY 02/26/24 fluoxetine 40 mg capsule 60 mg PO DAILY 03/05/25 psyllium husk 0.4 gram capsule 0.8 g PO DAILY 03/05/25 (Metamucil) tirzepatide 12.5 mg/0.5 mL 12.5 mg subcut QWEEK 03/05/25 subcutaneous pen injector (Mounjaro) bupropion HCl 200 mg tablet,12 hr 200 mg PO DAILY 04/29/25 sustained-release (Wellbutrin SR) norgestimate 0.25 mg-ethinyl 1 tab PO DAILY #84 tabs 04/29/25 estradiol 0.035 mg tablet (Sprintec (28)) Current Visit Medications: Current Medications Generic Name Dose Route Start Last Admin Trade Name Freq PRN Reason Stop Dose Admin Hydromorphone HCl 0.2 mg 05/13/25 20:17 Hydromorphone 2 Mg/Ml Syr IVP 06/12/25 20:16 Q1H PRN PRN Ringer's Solution 1,000 mls @ 80 mls/hr 05/14/25 06:00 05/14/25 11:49 IV 05/14/25 23:59 80 mls/hr INFUSION GT Administration IV Miscellaneous Supplies 1 each 05/14/25 06:00 Iv Access IV 05/14/25 23:59 DIRECTED GT Sodium Biphosphate/Sodium Phosphate 133 ml 05/14/25 06:00 Na Phosphate Enema-Adult 133 Ml Btl MO 05/14/25 23:59 DIRECTED GT Sodium Chloride 0 ml 05/14/25 06:00 Normal Saline Flush 10 Ml Syr IV 05/14/25 23:59 PRN PRN Sodium Chloride 0 ml 05/14/25 06:00 Normal Saline 10 Ml Vial IJ 05/14/25 23:59 DIRECTED PRN Sterile Water 0 ml 05/14/25 06:00 Water,Injection,Sterile 10 Ml Vial IJ 05/14/25 23:59 DIRECTED PRN Tramadol HCl 50 mg 05/13/25 20:17 Tramadol 50 Mg Tab PO 06/12/25 20:16 Q6H PRN PRN Pain PFSH Active Problems Active Problems: Problem Status Onset Code Irregular bowel habits Acute R19.8 ADHD (attention deficit hyperactivity disorder) Acute F90.9 OCD (obsessive compulsive disorder) Acute F42.9 Bowel dysfunction Acute K59.9 Obesity Chronic E66.9 Type 2 diabetes mellitus Acute E11.9 Hemorrhoids Acute K64.9 Medical History Medical History Polyp of nasal cavity Hyperlipidemia Steatosis of liver Chilblain IBS (irritable bowel syndrome) Constipation Anxiety disorder Major depression Ear fullness History of blood transfusion Otitis media, unspecified, bilateral Nasal polyps Candidiasis of skin Eustachian tube dysfunction Leg wound, left Surgical History Surgical History History of colonoscopy (~03/2025) H/O wisdom tooth extraction History of tonsillectomy History of endoscopy Tobacco Smoking/Tobacco Use Status: Never Passive smoking exposure: No Alcohol Alcohol Intake: never Substance Use Substance use: Never Substance use type: does not use Prental History History 1 Para 1 Hx # Term Pregnancies Multiple births Hx # Pregnancies Ectopic pregnancies AB induced Hx Number of Living Children AB spontaneous Past Pregnancies Del. Date GA/Weeks # Preg Succ Route Wgt Sex Labor Lgth Anesthesia Location Prov Complic 06/24/21 38 Yes vaginal Male Delivery Date: 06/24/21 Last Updated by: Corazon Trivedi Vital Signs and Lab Results Vital Signs Most Recent Vital Signs in EMR: Most Recent Vital Signs Temp Pulse Resp BP Pulse Ox 36.2 C L 74 18 114/71 100 05/14/25 11:29 05/14/25 11:29 05/14/25 11:29 05/14/25 11:29 05/14/25 11:29 Point of Care Results Point of Care Results: Finger Stick Blood Glucose 97 05/14/25 11:25 Lab Results Complete Blood Count: WBC, (4.4-10.8) 7.80 10^3/uL 05/01/25, 08:45 RBC, (3.93-5.22) 4.73 10^6/uL 05/01/25, 08:45 Hgb, (11.2-15.7) 12.9 g/dL 05/01/25, 08:45 Hct, (36.0-46.0) 39.7 % 05/01/25, 08:45 Plt Count, (130-400) 242 10^3/uL 05/01/25, 08:45 Thyroid Panel: TSH, (0.36-3.74) 2.09 uIU/mL 05/01/25, 08:45 Anesthesia Assessment and Plan Anesthesia History Personal History: No History of Anesthesia Complications Family History: No Family History of Anesthesia Complications Exercise Tolerance Exercise Tolerance: Metabolic Equivalents>4 Pertinent Negatives Pertinent Negatives: No Symptoms of GERD, No Major Cardiovascular Symptoms or Complaints, No Major Pulmonary Symptoms or Complaints and No History of CVA/TIA Cardiac & Pulmonary Exam Cardiac Exam: Normal S1/S2 Heart Sounds Pulmonary Exam: Clear Bilateral Breath Sounds Implantable Cardiac Device Does patient have a Pacemaker or an ICD?: No Airway Exam Known Difficult Airway: No Mallampati Class: 1 Mouth Opening: Normal (> 3cm) Thyromental Distance: Greater than 3 cm Neck Range of Motion: Full ROM Neck Circumference: Normal Teeth Condition: Normal Dentition ASA Classification ASA Score: ASA 2 Emergency Case?: No NPO Status NPO Status: NPO Clears >2 hours, Solids >8 hours Status Status: Negative HCG Anesthesia Plan Resuscitation Status: Full Code Anesthesia Technique: General Anesthesia Airway Planned: Endotracheal Tube Monitors Used: Standard Monitors and SedLine
[2025-05-14 12:59] VITALS: BMI 34.8
[2025-05-14] MEDS: Bupivacaine LIPOSOME/PF 133 MG/10 ML VIAL IJ (14:18)
[2025-05-14] MEDS: Bupivacaine 0.5% Pres-Free 30 ML VIAL (14:18)
[2025-05-14 14:38] VITALS: TEMP 36.7
[2025-05-14 14:53] VITALS: TEMP 36.7
[2025-05-14] MEDS: Droperidol 5 MG/2 ML VIAL 0.625 MG IVP (14:57)
--- NOTE | 2025-05-14 15:02 | W.ANESPOSTOP ---
Postoperative Evaluation Date, Time and Location Date Performed: 05/14/25 Time Performed: 15:02 Patient Location: PACU Vital Signs Most Recent Imported Vital Signs: Most Recent Vital Signs Temp Pulse Resp BP Pulse Ox 36.7 C 74 18 114/71 100 05/14/25 14:53 05/14/25 11:29 05/14/25 11:29 05/14/25 11:29 05/14/25 11:29 Pain Score Most Recent Pain Score: Most Recent Pain Score Pain Level 0 05/14/25 11:29 Assessment Mental Status: Awake (Alert & Oriented to Patient Baseline) Airway and Respiratory Function: Patent airway with normal (patient baseline) respiratory exam Cardiovascular Function: Hemodynamically Stable Hydration Status: Adequately Hydrated Nausea & Vomiting: Active Nausea or Vomiting Present Nausea and Vomiting Management: Nausea and vomiting active, being addressed with medication Pain: Pain is tolerable per patient Peripheral Nerve Block: Patient did not receive a nerve block
[2025-05-14 15:20] VITALS: BP 93/58; PULSE 66; RESP 16; TEMP 36.3; O2SAT 92
[2025-05-14 15:42] VITALS: BP 101/62; PULSE 68; RESP 16; TEMP 36.4; O2SAT 96
== END 2025-05-14 16:00 | disposition home or self-care (01) ==
LOC: SUR 10:58
PROVIDERS: PCP Family Medicine; Visit Provider Surgery
PROC: (CPT 46200; principal; 2025-05-14 12:15)
DX: K60.0 Acute anal fissure (principal)
CPT/HCPCS: 46200; J0131; J0665; J0666; J1100; J1790; J2003; J2250; J2405; J2704

== ENCOUNTER 2025-06-11 14:37 | Outpatient (REF) | payer MEDICAID, SELFPAY ==
[2025-06-12 11:27] LABS: Chlamydia Result Negative (Negative); GC Result Negative (Negative)
== END 2025-06-11 14:38 | disposition home or self-care (01) ==
LOC: LBN 14:37
PROVIDERS: PCP Family Medicine; Visit Provider Nurse Practitioner Women's Health
DX: Z11.3 Encounter for screening for infections with a predominantly sexual mode of transmission (principal)
CPT/HCPCS: 87491; 87591

== ENCOUNTER 2025-06-11 16:48 | Outpatient (CLI) | payer MEDICAID, SELFPAY ==
[2025-06-12 00:03] LABS: HIV-1/2 Ag & Ab Screen Negative (Negative)
[2025-06-12 00:06] LABS: Hepatitis C Ab w Rflx HCV PCR Negative (Negative)
[2025-06-14 15:13] LABS: Syphilis IgG w/Reflex Nonreactive (Nonreactive)
== END 2025-06-11 16:49 | disposition home or self-care (01) ==
LOC: LBO 16:48
PROVIDERS: PCP Family Medicine; Visit Provider Nurse Practitioner Women's Health
DX: Z11.3 Encounter for screening for infections with a predominantly sexual mode of transmission (principal)
CPT/HCPCS: 36415; 86803; 87389; 86780

== ENCOUNTER 2025-06-11 17:20 | Outpatient (REF) | payer MEDICAID, SELFPAY ==
[2025-06-11 15:48] LABS: Abs Immature Grans 0.03 10^3/uL (0.0-0.06); HCT 38.4 % (36.0-46.0); HGB 12.8 g/dL (11.2-15.7); Immature Grans % 0.6 %; MCH 28.6 pg (27.0-33.0); MCHC 33.3 % (32.0-36.0); MCV 86 fL (80-95); MPV 10.0 fL (8.0-11.0); Platelet Count 272 10^3/uL (130-400); RBC 4.48 10^6/uL (3.93-5.22); RDW 13.1 % (11.7-14.6); RDW-SD 40.4 fL; WBC 5.41 10^3/uL (4.4-10.8)
[2025-06-11 17:06] LABS: Iron 69 ug/dL (50-170); Total Iron Binding Capacity 351 ug/dL (250-450); Transferrin Sat 20 % (15-50)
[2025-06-11 18:04] LABS: Ferritin 52 ng/mL (8-252); Vitamin B12 219 pg/mL (193-986); Vitamin D 25 Total 28 ng/mL (30-100)
== END 2025-06-11 17:21 | disposition home or self-care (01) ==
LOC: NCHCN 17:20
PROVIDERS: PCP Family Medicine; Visit Provider Family Medicine
DX: R53.83 Other fatigue (principal)
CPT/HCPCS: 82306; 82607; 82728; 83540; 83550; 85025

== ENCOUNTER 2025-08-13 04:59 | Outpatient (CLI) | payer MEDICAID, SELFPAY ==
[2025-08-14 19:47] LABS: HIV-1/2 Ag & Ab Screen Negative (Negative)
[2025-08-14 19:57] LABS: Hepatitis C Ab w Rflx HCV PCR Negative (Negative)
[2025-08-16 20:17] LABS: Syphilis IgG w/Reflex Nonreactive (Nonreactive)
== END 2025-08-13 05:00 ==
LOC: LBO 08-14 04:59
PROVIDERS: PCP Family Medicine; Visit Provider Nurse Practitioner Women's Health
DX: Z11.3 Encounter for screening for infections with a predominantly sexual mode of transmission (principal)
CPT/HCPCS: 86803; 87389; 86780

== ENCOUNTER 2025-08-13 13:01 | Outpatient (REF) | payer MEDICAID, SELFPAY ==
[2025-08-14 12:26] LABS: Chlamydia Result Negative (Negative); GC Result Negative (Negative)
== END 2025-08-13 13:02 | disposition home or self-care (01) ==
LOC: LBN 13:01
PROVIDERS: PCP Family Medicine; Visit Provider Nurse Practitioner Women's Health
DX: Z11.3 Encounter for screening for infections with a predominantly sexual mode of transmission (principal); N76.0 Acute vaginitis
CPT/HCPCS: 87491; 87591; 87480; 87510; 87660

== ENCOUNTER 2025-09-10 14:44 | Outpatient (REF) | payer MEDICAID, SELFPAY ==
[2025-09-10 22:10] LABS: Hemoglobin A1C 5.3 % (<5.7)
[2025-09-10 22:31] LABS: Calculated LDL 70 mg/dL (<100); Cholesterol 143 mg/dL (<200); HDL Cholesterol 49 mg/dL (>or=50); Triglyceride 120 mg/dL (<150); Vitamin B12 374 pg/mL (193-986); Vitamin D 25 Total 32 ng/mL (30-100)
== END 2025-09-10 14:45 | disposition home or self-care (01) ==
LOC: NCHCN 14:44
PROVIDERS: PCP Family Medicine; Visit Provider Family Medicine
DX: E78.5 Hyperlipidemia, unspecified (principal); E53.8 Deficiency of other specified B group vitamins; E55.9 Vitamin D deficiency, unspecified; E11.9 Type 2 diabetes mellitus without complications
CPT/HCPCS: 80061; 82306; 82607; 83036

== ENCOUNTER 2025-10-15 09:50 | Outpatient (CLI) | payer MEDICAID, SELFPAY ==
[2025-10-15 20:26] LABS: HIV-1/2 Ag & Ab Screen Negative (Negative)
[2025-10-15 20:29] LABS: Hepatitis C Ab w Rflx HCV PCR Negative (Negative)
[2025-10-20 12:46] LABS: Syphilis IgG w/Reflex Nonreactive (Nonreactive)
== END 2025-10-15 09:51 | disposition home or self-care (01) ==
LOC: LBO 09:50
PROVIDERS: PCP Family Medicine; Visit Provider Nurse Practitioner Women's Health
DX: Z11.3 Encounter for screening for infections with a predominantly sexual mode of transmission (principal)
CPT/HCPCS: 36415; 86803; 87389; 86780

== ENCOUNTER 2025-10-15 09:54 | Outpatient (REF) | payer MEDICAID, SELFPAY ==
[2025-10-16 11:55] LABS: Chlamydia Result Negative (Negative); GC Result Negative (Negative)
== END 2025-10-15 09:55 | disposition home or self-care (01) ==
LOC: LBN 09:54
PROVIDERS: PCP Family Medicine; Visit Provider Nurse Practitioner Women's Health
DX: Z11.3 Encounter for screening for infections with a predominantly sexual mode of transmission (principal)
CPT/HCPCS: 87491; 87591; 87480; 87510; 87660